=== PATIENT | female | born 1940 | race Caucasian/White ===

== ENCOUNTER 2017-09-24 06:24 | Observation (INO) | payer MEDICARE, BC ==
[2017-09-24] VITALS (10 sets, daily range): BP systolic 105–232; BP diastolic 52–105; PULSE 43–71; RESP 16–20; TEMP 96.9–97.4; O2SAT 94–97
[~2017-09-24] VITALS: Ht 144.8 cm; Wt 69.7 kg
--- NOTE | 2017-09-24 07:14 | PD ---
HPI Chief Complaint: Musculoskeletal Complaint Time Seen by Provider: 07:11 Travel History International Travel<30 days: No Contact w/Intl Traveler<30days: No Traveled to known affect area: No History of Present Illness HPI 77-year-old female patient presents to the ER today, states that she has been having 3 weeks history of generalized weakness, body aches, dyspnea on exertion. She denies any fevers, vomiting, abdominal pains, diarrhea, chest pains, or any other symptoms. Modifying Factors: None Associated Signs & Symptoms: General weakness, body aches, dyspnea on exertion Risk Factors: None PFSH Past Medical History ?: Not Social History Tobacco Use: No Allergies-Medications (Allergen,Severity, Reaction): Coded Allergies: bacitracin (Verified Allergy, Severe, redness, 09/24/17) Reported Meds & Prescriptions Reported Meds & Active Scripts Active Reported Xalatan Opth Drops (Latanoprost) 0.005% Drops 1 Drop EACH EYE HS Cimetidine 800 Mg Tab 800 Mg PO HS Nexium (Esomeprazole DR) 40 Mg Capdr 40 Mg PO EVERY OTHER DAY Nexium (Esomeprazole DR) 40 Mg Capdr 40 Mg PO DAILY Rosadan Topical 0.75% (Metronidazole Topical 0.75%) 0.75% Gel 1 Applic TOPICAL BID Atenolol 100 Mg Tab 100 Mg PO DAILY Losartan (Losartan Potassium) 100 Mg Tab 100 Mg PO DAILY Review of Systems Except as stated in HPI: all other systems reviewed are Neg Physical Exam Narrative GENERAL: Well-developed elderly white female patient currently in mild distress. Awake, alert, oriented 3. SKIN: Focused skin assessment warm/dry. HEAD: Atraumatic. Normocephalic. EYES: Pupils equal and round. No scleral icterus. No injection or drainage. ENT: No nasal bleeding or discharge. Mucous membranes pink and moist. NECK: Trachea midline. No JVD. Supple. CARDIOVASCULAR: Regular rate and rhythm. No murmur appreciated. Pulses are present and equal bilaterally. RESPIRATORY: No accessory muscle use. Clear to auscultation. Breath sounds equal bilaterally. GASTROINTESTINAL: Abdomen soft, non-tender, nondistended. Hepatic and splenic margins not palpable. MUSCULOSKELETAL: No obvious deformities. No clubbing. No cyanosis. No edema. NEUROLOGICAL: Awake and alert. No obvious cranial nerve deficits. Motor grossly within normal limits. Normal speech. PSYCHIATRIC: Appropriate mood and affect; insight and judgment normal. Data Data Last Documented VS Vital Signs Date Time Temp Pulse Resp B/P (MAP) Pulse Ox O2 Delivery O2 Flow Rate FiO2 09/24/17 07:10 208/89 (128) 09/24/17 07:10 43 18 09/24/17 07:00 Orders Orders Complete Blood Count With Diff (09/24/17 06:55) Comprehensive Metabolic Panel (09/24/17 06:55) Urinalysis - C+S If Indicated (09/24/17 06:55) Electrocardiogram (09/24/17 07:04) Influenzae A/B Antigen (09/24/17 07:04) Ckmb (Isoenzyme) Profile (09/24/17 06:55) Troponin I (09/24/17 06:55) Chest, Single Ap (09/24/17 07:11) D-Dimer (09/24/17 07:11) Admit Order (Ed Use Only) (09/24/17 09:04) Labs Laboratory Tests Test 09/24/17 07:30 09/24/17 07:32 Urine Color YELLOW Urine Turbidity CLEAR Urine pH 6.0 Urine Specific Glennie 1.007 Urine Protein TRACE mg/dL Urine Glucose (UA) NEG mg/dL Urine Ketones NEG mg/dL Urine Occult Blood NEG Urine Nitrite NEG Urine Bilirubin NEG Urine Leukocyte Esterase NEG Urine RBC 0-3 /hpf Urine WBC 0-2 /hpf Urine Squamous Epithelial Cells 0-5 /hpf Urine Bacteria NONE /hpf Microscopic Urinalysis Comment CULT NOT INDICATED White Blood Count 11.4 TH/MM3 Red Blood Count 4.98 MIL/MM3 Hemoglobin 13.6 GM/DL Hematocrit 42.3 % Mean Corpuscular Volume 84.8 FL Mean Corpuscular Hemoglobin 27.4 PG Mean Corpuscular Hemoglobin Concent 32.3 % Red Cell Distribution Width 13.3 % Platelet Count 324 TH/MM3 Mean Platelet Volume 8.1 FL Neutrophils (%) (Auto) 68.0 % Lymphocytes (%) (Auto) 23.8 % Monocytes (%) (Auto) 6.7 % Eosinophils (%) (Auto) 0.7 % Basophils (%) (Auto) 0.8 % Neutrophils # (Auto) 7.7 TH/MM3 Lymphocytes # (Auto) 2.7 TH/MM3 Monocytes # (Auto) 0.8 TH/MM3 Eosinophils # (Auto) 0.1 TH/MM3 Basophils # (Auto) 0.1 TH/MM3 CBC Comment DIFF FINAL Differential Comment D-Dimer Quantitative (PE/DVT) 0.62 MG/L FEU Blood Urea Nitrogen 11 MG/DL Creatinine 0.64 MG/DL Random Glucose 114 MG/DL Total Protein 7.7 GM/DL Albumin 3.3 GM/DL Calcium Level 8.8 MG/DL Alkaline Phosphatase 106 U/L Aspartate Amino Transf (AST/SGOT) 18 U/L Alanine Aminotransferase (ALT/SGPT) 19 U/L Total Bilirubin 0.3 MG/DL Sodium Level 136 MEQ/L Potassium Level 3.8 MEQ/L Chloride Level 99 MEQ/L Carbon Dioxide Level 29.9 MEQ/L Anion Gap 7 MEQ/L Estimat Glomerular Filtration Rate 90 ML/MIN Total Creatine Kinase 25 U/L Troponin I LESS THAN 0.02 NG/ML MDM Medical Decision Making Medical Screen Exam Complete: Yes Emergency Medical Condition: Yes Medical Record Reviewed: Yes Interpretation(s) EKG shows a sinus bradycardia with a right bundle branch block pattern at a rate of 40 bpm. There is a fairly short MT interval. No signs of acute ST-T elevations or depressions. However, her T waves does appear to be more peaked. Laboratory Tests Test 09/24/17 07:30 09/24/17 07:32 White Blood Count 11.4 TH/MM3 (4.0-11.0) D-Dimer Quantitative (PE/DVT) 0.62 MG/L FEU (0.00-0.50) Random Glucose 114 MG/DL (74-106) Albumin 3.3 GM/DL (3.4-5.0) Total Creatine Kinase 25 U/L (26-192) Troponin I LESS THAN 0.02 NG/ML Last 24 hours Impressions Chest X-Ray 09/24/17 0711 Signed Impressions: Service Date/Time: Sunday, September 24, 2017 07:27 - CONCLUSION: No acute disease. Grover Penn MD Differential Diagnosis General weakness, body aches, dyspnea on exertion: Electrolyte abnormalities versus dehydration versus viral syndrome versus influenza versus rhabdomyolysis/ myopathy versus CHF versus pneumonia versus ACS Narrative Course Chest x-ray did not show any signs of acute pulmonary processes. Her lab work was otherwise unremarkable for significant metabolic issues. She does not have influenza. However, I do notice that her heart rate is running in the 40s and I suspect that she has a symptomatic bradycardia. She is on atenolol which may be worsening symptoms. Patient states she had just taken it this morning as well. At this point, my plan would be to admit her for observation for symptom at a bradycardia. We will hold the atenolol. Case was discussed with Dr. Murray for admission. Diagnosis Primary Impression: General weakness Additional Impression: Symptomatic bradycardia Admitting Information Admitting Physician Requests: Admit Keely Murillo MD Sep 24, 2017 07:14
[2017-09-24] MEDS ORDERED: LOSA100T PO (07:19)
[2017-09-24] MEDS ORDERED: METR0.7533 TOPICAL (07:19)
[2017-09-24] MEDS ORDERED: ATEN100T PO (07:19)
[2017-09-24] MEDS ORDERED: CIME800T PO (07:19)
[2017-09-24] MEDS ORDERED: LATA.005%O EACH EYE (07:19)
[2017-09-24] MEDS ORDERED: NEXI40CA PO ×2 (07:19)
[2017-09-24 07:41] LABS: AUTOMATED NEUTROPHIL # 7.7 TH/MM3 (1.8-7.7); BASOPHIL # 0.1 TH/MM3 (0-0.2); BASOPHIL % 0.8 % (0.0-2.0); EOSINOPHIL # 0.1 TH/MM3 (0-0.4); EOSINOPHIL % 0.7 % (0.0-4.0); HEMATOCRIT 42.3 % (35.0-46.0); HEMOGLOBIN 13.6 GM/DL (11.6-15.3); LYMPH % 23.8 % (9.0-44.0); LYMPHOCYTE # 2.7 TH/MM3 (1.0-4.8); MEAN CELL VOLUME 84.8 FL (80.0-100.0); MEAN CORPUSCULAR HEMOGLOBIN 27.4 PG (27.0-34.0); MEAN CORPUSCULAR HGB CONC 32.3 % (32.0-36.0); MEAN PLATELET VOLUME 8.1 FL (7.0-11.0); MONO % 6.7 % (0.0-8.0); MONOCYTE # 0.8 TH/MM3 (0-0.9); PLATELET COUNT 324 TH/MM3 (150-450); RED BLOOD COUNT 4.98 MIL/MM3 (4.00-5.30); RED CELL DISTRIBUTION WIDTH 13.3 % (11.6-17.2); WHITE BLOOD COUNT 11.4 TH/MM3 (4.0-11.0)
[2017-09-24 07:44] LABS: BILIRUBIN, URINE NEG (NEG); BLOOD, URINE NEG (NEG); GLUCOSE,URINE NEG (NEG); KETONE, URINE NEG (NEG); NITRITE,URINE NEG (NEG); URINE LEUKOCYTE ESTERASE NEG (NEG)
[2017-09-24 07:47] LABS: RBC, URINE 0-3 /hpf (0-3); SQUAMOUS EPITHELIAL CELL URINE 0-5 /hpf (0-5); URINE COLOR YELLOW (YELLW/STRAW); WBC, URINE 0-2 /hpf (0-5)
--- NOTE | 2017-09-24 07:49 | RADRPT ---
EXAM DATE/TIME: 09/24/2017 07:27 [facility] COMPARISON: No previous studies available for comparison. INDICATIONS : Upper back pain and pain all over as well. MEDICAL HISTORY : None. SURGICAL HISTORY : None. ENCOUNTER: Initial ACUITY: 4 - 6 days PAIN SCORE: 5/10 LOCATION: posterior back FINDINGS: A single view of the chest demonstrates the lungs to be symmetrically aerated without evidence of mas s, infiltrate or effusion. The cardiomediastinal contours are unremarkable. Osseous structures are intact. CONCLUSION: No acute disease. Grover Penn MD on September 24, 2017 at 7:48 Board Certified Radiologist. This report was verified electronically.
[2017-09-24 07:50] LABS: CHLORIDE 99 MEQ/L (98-107); SODIUM (NA) 136 MEQ/L (136-145)
[2017-09-24 07:53] LABS: CALCIUM 8.8 MG/DL (8.5-10.1)
[2017-09-24 07:54] LABS: ALBUMIN 3.3 GM/DL (3.4-5.0); BICARBONATE 29.9 MEQ/L (21.0-32.0); BLOOD UREA NITROGEN 11 MG/DL (7-18); GLUCOSE,RANDOM 114 MG/DL (74-106)
[2017-09-24 07:57] LABS: ALT (GPT) 19 U/L (10-53); AST (GOT) 18 U/L (15-37); CREATININE 0.64 MG/DL (0.50-1.00); GLOMERULAR FILTRATION RATE 90 ML/MIN (>89)
[2017-09-24 07:59] LABS: TOTAL BILIRUBIN ADULT 0.3 MG/DL (0.2-1.0); TOTAL PROTEIN 7.7 GM/DL (6.4-8.2)
[2017-09-24 08:00] LABS: ALKALINE PHOSPHATASE 106 U/L (45-117)
[2017-09-24 08:02] LABS: TROPONIN I LESS THAN 0.02 NG/ML (0.02-0.05)
[2017-09-24] MEDS ORDERED: TEMAZEPAM 15 MG CAP PO PRN (09:15)
[2017-09-24] MEDS ORDERED: SODIUM CHLORIDE 0.9% FLUSH 10 ML FLUSH IV FLUSH PRN (09:15)
[2017-09-24] MEDS ORDERED: hydrALAZINE HCL 10 MG TAB PO PRN (09:15)
[2017-09-24] MEDS ORDERED: SENNOSIDES 8.6 MG TAB PO PRN (09:15)
[2017-09-24] MEDS ORDERED: LACTULOSE SYRUP 20 GM/30 ML CUP PO PRN (09:15)
[2017-09-24] MEDS ORDERED: MAGNESIUM HYDROXIDE SUSP 30 ML CUP PO PRN (09:15)
[2017-09-24] MEDS ORDERED: NALOXONE HCL 0.4 MG/ML AMP IV PUSH PRN (09:15)
[2017-09-24] MEDS ORDERED: ONDANSETRON HCL 4 MG/2 ML VIAL IVP PRN (09:15)
[2017-09-24] MEDS ORDERED: ACETAMINOPHEN 325 MG TAB PO PRN (09:15)
[2017-09-24] MEDS ORDERED: BISACODYL 10 MG SUPP RECTAL PRN (09:15)
[2017-09-24] MEDS ORDERED: NITROGLYCERIN 2% OINT 1 GM PACKET TOPICAL ONE (09:30)
[2017-09-24] MEDS: ENOXAPARIN SODIUM 40 MG/0.4 ML SYRINGE SQ SCH (09:31)
[2017-09-24] MEDS ORDERED: ENALAPRILAT 2.5 MG/2 ML VIAL IV PUSH PRN (13:30)
--- NOTE | 2017-09-24 14:10 | HHI.HP ---
HPI [facility] Primary Care Physician Non-Staff Admission Diagnosis Symptomatic bradycardia Diagnoses: Chief Complaint: Generalized weakness Dyspnea on exertion Fatigue Travel History International Travel<30 Days: No Contact w/Intl Traveler <30 Da: No Traveled to Known Affected Are: No History of Present Illness Written by Valerie Sanchez, acting as scribe for Dr. Murray on 09/24/17 at 13:55. Mrs. Verma is a 77-year-old female patient with a known medical history of HTN, asthma and GERD who presented to the ED with generalized weakness, dyspnea on exertion and fatigue x 3 weeks. She states that over the past few weeks she has been experiencing inability to perform daily IADLs without becoming short of breath and requiring a break. She also states she has been unable to keep up while walking alongside her . Patient states she has been feeling generally weak with complaint of transient tingling in her left arm. She also took her BP this morning which showed systolic in the 200's. She states he heart rate usually runs in the 50's. Denies any recent fever, chills, headache, shortness of breath, ab pain, n/v/d or dysuria. PCP is located in [place] where she resides half of the year. Does not follow with a [employer] [facility] developer. 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 Reported Medications Active Reported Xalatan Opth Drops (Latanoprost) 0.005% Drops 1 Drop EACH EYE HS Cimetidine 800 Mg Tab 800 Mg PO HS Nexium (Esomeprazole DR) 40 Mg Capdr 40 Mg PO EVERY OTHER DAY Rosadan Topical 0.75% (Metronidazole Topical 0.75%) 0.75% Gel 1 Applic TOPICAL BID Atenolol 100 Mg Tab 100 Mg PO DAILY Losartan (Losartan Potassium) 100 Mg Tab 100 Mg PO DAILY Allergies: Coded Allergies: bacitracin (Verified Allergy, Severe, redness, 09/24/17) Active Ordered Medications Current Medications Medications (Trade) Dose Ordered Sig/Layla Route Start Time Stop Time Status Last Admin (NS Flush) 2 ml UNSCH PRN IV FLUSH 09/24/17 09:15 (NS Flush) 2 ml BID IV FLUSH 09/24/17 21:00 (Tylenol) 650 mg Q4H PRN PO 09/24/17 09:15 (Zofran Inj) 4 mg Q6H PRN IVP 09/24/17 09:15 (Restoril) 15 mg HS PRN PO 09/24/17 09:15 (Lovenox Inj) 40 mg Q24H SQ 09/24/17 10:00 09/24/17 09:31 (Narcan Inj) 0.4 mg UNSCH PRN IV PUSH 09/24/17 09:15 (Marcy-Colace) 1 tab BID PO 09/24/17 21:00 (Milk Of Magnesia Liq) 30 ml Q12H PRN PO 09/24/17 09:15 (Senokot) 17.2 mg Q12H PRN PO 09/24/17 09:15 (Dulcolax Supp) 10 mg DAILY PRN RECTAL 09/24/17 09:15 (Lactulose Liq) 30 ml DAILY PRN PO 09/24/17 09:15 (Apresoline) 10 mg Q6HR PRN PO 09/24/17 09:15 (Xalatan 0.005% Opth Soln) 1 drop HS EACH EYE 09/24/17 21:00 (Cozaar) 100 mg DAILY PO 09/25/17 09:00 (Pepcid) 20 mg BID PO 09/24/17 21:00 (Protonix) 40 mg EVERY OTHER DAY PO 09/26/17 09:00 Patient Own Medication PT OWN MED: (Metronidazole Topical 0.... BID TOPICAL 09/24/17 21:00 Future Hold (Vasotec Inj) 2.5 mg Q6H PRN IV PUSH 09/24/17 13:30 (Lipitor) 20 mg HS PO 09/24/17 21:00 UNV Family History Maternal medical history significant for pacemaker and cardiovascular issues, at the age of 94 years of age. Paternal medical history significant for HTN, stroke, at the age of 70. Social History Does admit to smoking cigarettes for a total of 20 years, states she quit 20 years ago. Does admit to occasional alcohol use. Denies any illicit drug use. Physical Exam Vital Signs Vital Signs Date Time Temp Pulse Resp B/P (MAP) Pulse Ox O2 Delivery O2 Flow Rate FiO2 09/24/17 12:00 97.2 71 20 105/52 (69) 94 09/24/17 10:23 95 21 09/24/17 10:10 97.1 65 16 164/72 (102) 95 09/24/17 09:52 09/24/17 09:26 67 16 165/81 (109) 95 Room Air 09/24/17 07:10 208/89 (128) 09/24/17 07:10 43 18 09/24/17 07:00 09/24/17 06:41 97.4 43 18 232/105 (147) 97 Physical Exam GENERAL: This is a well-nourished, well-developed patient, in no apparent distress. SKIN: No rashes, ecchymoses or lesions. Warm and dry. HEAD: Atraumatic. Normocephalic. EYES: Pupils equal round and reactive. Extraocular motions intact. No scleral icterus. No injection or drainage. ENT: Nose without bleeding, purulent drainage or septal hematoma. Throat without erythema, tonsillar hypertrophy or exudate. Uvula midline. Airway patent. NECK: Trachea midline. No JVD or lymphadenopathy. Supple. CARDIOVASCULAR: Regular rate and rhythm without murmurs, gallops, or rubs. RESPIRATORY: Clear to auscultation. Breath sounds equal bilaterally. No wheezes , rales, or rhonchi. GASTROINTESTINAL: Abdomen soft, non-tender, nondistended. No guarding. MUSCULOSKELETAL: Extremities without clubbing, cyanosis, or edema. No joint tenderness, effusion, or edema noted. NEUROLOGICAL: Awake and alert. Cranial nerves II through XII intact. Motor and sensory grossly within normal limits. Five out of 5 muscle strength in all muscle groups. Normal speech. Laboratory Laboratory Tests Test 09/24/17 07:30 09/24/17 07:32 Urine Color YELLOW Urine Turbidity CLEAR Urine pH 6.0 Urine Specific [place] 1.007 Urine Protein TRACE Urine Glucose (UA) NEG Urine Ketones NEG Urine Occult Blood NEG Urine Nitrite NEG Urine Bilirubin NEG Urine Leukocyte Esterase NEG Urine RBC 0-3 Urine WBC 0-2 Urine Squamous Epithelial Cells 0-5 Urine Bacteria NONE Microscopic Urinalysis Comment CULT NOT INDICATED White Blood Count 11.4 Red Blood Count 4.98 Hemoglobin 13.6 Hematocrit 42.3 Mean Corpuscular Volume 84.8 Mean Corpuscular Hemoglobin 27.4 Mean Corpuscular Hemoglobin Concent 32.3 Red Cell Distribution Width 13.3 Platelet Count 324 Mean Platelet Volume 8.1 Neutrophils (%) (Auto) 68.0 Lymphocytes (%) (Auto) 23.8 Monocytes (%) (Auto) 6.7 Eosinophils (%) (Auto) 0.7 Basophils (%) (Auto) 0.8 Neutrophils # (Auto) 7.7 Lymphocytes # (Auto) 2.7 Monocytes # (Auto) 0.8 Eosinophils # (Auto) 0.1 Basophils # (Auto) 0.1 CBC Comment DIFF FINAL Differential Comment D-Dimer Quantitative (PE/DVT) 0.62 Blood Urea Nitrogen 11 Creatinine 0.64 Random Glucose 114 Total Protein 7.7 Albumin 3.3 Calcium Level 8.8 Alkaline Phosphatase 106 Aspartate Amino Transf (AST/SGOT) 18 Alanine Aminotransferase (ALT/SGPT) 19 Total Bilirubin 0.3 Sodium Level 136 Potassium Level 3.8 Chloride Level 99 Carbon Dioxide Level 29.9 Anion Gap 7 Estimat Glomerular Filtration Rate 90 Total Creatine Kinase 25 Troponin I LESS THAN 0.02 Date/Time Source Procedure Growth Status 09/24/17 07:28 Nasal Washing Influenza Types A,B Antigen ([facility]) - Final NEGATIVE FOR FLU A AND B ANTIGEN.... Complete Result Diagram: 09/24/17 0732 09/24/17 0732 Imaging Last Impressions Chest X-Ray 09/24/17 0711 Signed Impressions: Service Date/Time: Sunday, September 24, 2017 07:27 - CONCLUSION: No acute disease. Grover Penn MD Septic Shock Reassessment Septic shock perfusion: reassessment completed Caprini VTE Risk Assessment Caprini VTE Risk Assessment: Mod/High Risk (score >= 2) Caprini Risk Assessment Model Point Value = 1 Point Value = 2 Point Value = 3 Point Value = 5 Age 41-60 Minor surgery BMI > 25 kg/m2 Swollen legs Varicose veins or History of unexplained or recurrent spontaneous Oral contraceptives or hormone replacement Sepsis (< 1 month) Serious lung disease, including pneumonia (< 1 month) Abnormal pulmonary function Acute myocardial infarction Congestive heart failure (< 1 month) History of inflammatory bowel disease Medical patient at bed rest Age 61-74 Arthroscopic surgery Major open surgery (> 45 min) Laparoscopic surgery (> 45 min) Malignancy Confined to bed (> 72 hours) Immobilizing plaster cast Central venous access Age >= 75 History of VTE Family history of VTE Factor V Leiden Prothrombin [id number] Lupus anticoagulant Anticardiolipin antibodies Elevated serum homocysteine Heparin-induced thrombocytopenia Other congenital or acquired thrombophilia Stroke (< 1 month) Elective arthroplasty Hip, pelvis, or leg fracture Acute spinal cord injury (< 1 month) Prophylaxis Regimen Total Risk Factor Score Risk Level Prophylaxis Regimen 0-1 Low Early ambulation 2 Moderate Order ONE of the following: *Sequential Compression Device (SCD) *Heparin 5000 units SQ BID 3-4 Higher Order ONE of the following medications: *Heparin 5000 units SQ TID *Enoxaparin/Lovenox 40 mg SQ daily (WT < 150 kg, CrCl > 30 mL/min) *Enoxaparin/Lovenox 30 mg SQ daily (WT < 150 kg, CrCl > 10-29 mL/min) *Enoxaparin/Lovenox 30 mg SQ BID (WT < 150 kg, CrCl > 30 mL/min) AND/OR *Sequential Compression Device (SCD) 5 or more Highest Order ONE of the following medications: *Heparin 5000 units SQ TID (Preferred with Epidurals) *Enoxaparin/Lovenox 40 mg SQ daily (WT < 150 kg, CrCl > 30 mL/min) *Enoxaparin/Lovenox 30 mg SQ daily (WT < 150 kg, CrCl > 10-29 mL/min) *Enoxaparin/Lovenox 30 mg SQ BID (WT < 150 kg, CrCl > 30 mL/min) AND *Sequential Compression Device (SCD) Assessment and Plan Assessment and Plan Mrs. Verma is a 77-year-old female patient who presented to the ED with: Symptomatic bradycardia With generalized weakness, fatigue, muscle cramping, exertional dyspnea and transient tingling in left arm Heart rate noted to be as low as 39 bpm in ED. Patient takes Atenolol at home which has been discontinued due to symptomatic bradycardia. Continue to monitor on cardiac telemetry. Assess for any arrhythmias. Will obtain 2-D ECHO. Follow. CXR reviewed showing no acute disease. Hypertension, chronic: Systolic BP in the 200's on presentation. Now more controlled. Will continue home Losartan. Monitor BP trends. Vasotec IV and Hydralazine PO available PRN per parameters. Hyperlipidemia: Continue home statin. Elevated d-dimer and bilateral lower extremity cramping: Will order bilateral US rule out DVT. Follow. GERD: Protonix. DVT Prophylaxis: SCDs. Lovenox. Ambulation. This note was transcribed by NICHO Sanders. I, Dr. Noris Murray personally performed the history, physical exam, and medical decision making; and confirmed the accuracy of the information in the transcribed note. Authenticated by Dr. Noris Murray on 09/24/17 at 13:55. Valerie Sanchez Sep 24, 2017 14:10 Noris Murray MD Sep 24, 2017 18:53
--- NOTE | 2017-09-24 17:27 | EKG ---
Date Performed: 09/24/2017 Time Performed: 07:15:08 PTAGE: 77 years EKG: IDIOVENTRICULAR ESCAPE RHYTHM AT 40 BPM COMPLETE HEART BLOCK RIGHT BUNDLE BRANCH BLOCK LEFT ANTERIOR FASCICULAR BLOCK ABNORMAL ECG NO PREVIOUS TRACING DOCTOR: Ana María Bentley Interpretating Date/Time 09/24/2017 17:26:20
[2017-09-24] MEDS: DOCUSATE SODIUM 50 MG/SENNA 8.6 MG TAB PO SCH ×2 (20:50→20:59)
[2017-09-24] MEDS: FAMOTIDINE 20 MG TAB PO SCH ×2 (20:50→20:59)
[2017-09-24] MEDS: SODIUM CHLORIDE 0.9% FLUSH 10 ML FLUSH IV FLUSH SCH (20:51)
[2017-09-24] MEDS ORDERED: METRONIDAZOLE 0.75% TOPICAL SCH (21:00)
[2017-09-24] MEDS ORDERED: ATORVASTATIN 20 MG TAB PO SCH (21:00)
[2017-09-24] MEDS ORDERED: LATANOPROST 0.005% OPHT SOLN 2.5 ML BTL EACH EYE SCH (21:00)
[2017-09-25] VITALS: BP 169/79; PULSE 69; RESP 20; TEMP 97.5; O2SAT 93
[2017-09-25 04:00] VITALS: BP 150/70; PULSE 61; RESP 20; TEMP 97.1; O2SAT 93
[2017-09-25 06:09] LABS: AUTOMATED NEUTROPHIL # 4.8 TH/MM3 (1.8-7.7); BASOPHIL # 0.1 TH/MM3 (0-0.2); BASOPHIL % 0.7 % (0.0-2.0); EOSINOPHIL # 0.2 TH/MM3 (0-0.4); EOSINOPHIL % 1.9 % (0.0-4.0); HEMATOCRIT 37.5 % (35.0-46.0); HEMOGLOBIN 12.3 GM/DL (11.6-15.3); LYMPHOCYTE # 3.2 TH/MM3 (1.0-4.8); MEAN CORPUSCULAR HEMOGLOBIN 28.3 PG (27.0-34.0); MEAN CORPUSCULAR HGB CONC 32.8 % (32.0-36.0); MEAN PLATELET VOLUME 8.4 FL (7.0-11.0); MONO % 7.2 % (0.0-8.0); MONOCYTE # 0.6 TH/MM3 (0-0.9); NEUT % 54.2 % (16.0-70.0); PLATELET COUNT 247 TH/MM3 (150-450); RED BLOOD COUNT 4.37 MIL/MM3 (4.00-5.30); RED CELL DISTRIBUTION WIDTH 13.1 % (11.6-17.2); WHITE BLOOD COUNT 8.9 TH/MM3 (4.0-11.0)
[2017-09-25 06:28] LABS: BICARBONATE 30.4 MEQ/L (21.0-32.0); CALCIUM 8.5 MG/DL (8.5-10.1)
[2017-09-25 06:32] LABS: CREATININE 0.5 MG/DL (0.50-1.00)
[2017-09-25 08:00] VITALS: BP 135/68; PULSE 67; RESP 18; TEMP 97; O2SAT 97
--- NOTE | 2017-09-25 08:22 | RADRPT ---
EXAM DATE/TIME: 09/25/2017 07:52 [facility] COMPARISON: No previous studies available for comparison. INDICATIONS : Bilateral leg pain. MEDICAL HISTORY : Hypercholesterolemia. Hypertension. Gastroesophageal reflux disease. Asthma. Hiatal hernia. Arthritis . Squamous cell cancer. SURGICAL HISTORY : Tonsillectomy.Total knee replacement, left. Total knee replacement, right.Bilateral cataract surgery. Dilation and curettage. ENCOUNTER: Initial ACUITY: 1 day PAIN SCORE: 4/10 LOCATION: Bilateral legs. TECHNIQUE: Venous ultrasound of the left and right leg was performed from the inguinal ligament to the proximal calf. Real-time, color Doppler and spectral tracing, compression and augmentation techniques were us ed. FINDINGS: RIGHT LEG: There is normal compressibility of the deep venous system from the inguinal region to the proximal ca lf. No echogenic clot is seen in the lumen of the common femoral, femoral, popliteal, and posterior tibial veins. There is a normal response of the venous system to proximal and distal augmentation an d respiration. LEFT LEG: There is normal compressibility of the deep venous system from the inguinal region to the proximal ca lf. No echogenic clot is seen in the lumen of the common femoral, femoral, popliteal, and posterior tibial veins. There is a normal response of the venous system to proximal and distal augmentation an d respiration. CONCLUSION: No evidence of DVT. Darvin Ramsay MD on September 25, 2017 at 8:20 Board Certified Radiologist. This report was verified electronically.
[2017-09-25] MEDS: SODIUM CHLORIDE 0.9% FLUSH 10 ML FLUSH IV FLUSH SCH (08:39)
[2017-09-25] MEDS ORDERED: LOSARTAN 50 MG TAB PO SCH (09:00)
[2017-09-25] MEDS: DOCUSATE SODIUM 50 MG/SENNA 8.6 MG TAB PO SCH (09:11)
[2017-09-25] MEDS: ENOXAPARIN SODIUM 40 MG/0.4 ML SYRINGE SQ SCH (09:11)
[2017-09-25] MEDS: FAMOTIDINE 20 MG TAB PO SCH (09:11)
[2017-09-25] MEDS ORDERED: amLODIPine BESYLATE 5 MG TAB PO SCH (09:45)
--- NOTE | 2017-09-25 09:47 | HHI.PR ---
Subjective Remarks Ambulating in the hallways no cp, sob lightheadedness, feels much better. HR is better controlled. Objective Vitals Vital Signs Date Time Temp Pulse Resp B/P (MAP) Pulse Ox O2 Delivery O2 Flow Rate FiO2 09/25/17 04:00 97.1 61 20 150/70 (96) 93 09/25/17 00:00 97.5 69 20 169/79 (109) 93 09/24/17 20:00 96.9 67 20 171/80 (110) 94 09/24/17 19:28 96 21 09/24/17 16:00 97.2 60 20 169/74 (105) 97 09/24/17 12:00 97.2 71 20 105/52 (69) 94 09/24/17 10:23 95 21 09/24/17 10:10 97.1 65 16 164/72 (102) 95 09/24/17 09:52 I/O 09/24/17 09/24/17 09/24/17 09/25/17 09/25/17 09/25/17 07:00 15:00 23:00 07:00 15:00 23:00 Intake Total 920 ml 2 ml 720 ml Balance 920 ml 2 ml 720 ml Intake Oral 920 ml 720 ml IV Total 2 ml # Voids 2 4 Result Diagram: 09/25/17 0525 09/25/17 0525 Imaging Last Impressions Lower Extremity Ultrasound 09/25/17 0000 Signed Impressions: Service Date/Time: Monday, September 25, 2017 07:52 - CONCLUSION: No evidence of DVT. Darvin Ramsay MD Chest X-Ray 09/24/17 0711 Signed Impressions: Service Date/Time: Sunday, September 24, 2017 07:27 - CONCLUSION: No acute disease. Grover Penn MD Objective Remarks GENERAL: This is a well-nourished, well-developed patient, in no apparent distress. CARDIOVASCULAR: Regular rate and rhythm without murmurs, gallops, or rubs. RESPIRATORY: Clear to auscultation. Breath sounds equal bilaterally. No wheezes , rales, or rhonchi. GASTROINTESTINAL: Abdomen soft, non-tender, nondistended. No guarding. MUSCULOSKELETAL: Extremities without clubbing, cyanosis, or edema. No joint tenderness, effusion, or edema noted. NEUROLOGICAL: Awake and alert. Cranial nerves II through XII intact. Motor and sensory grossly within normal limits. Five out of 5 muscle strength in all muscle groups. Normal speech. A/P Assessment and Plan Mrs. Verma is a 77-year-old female patient who presented to the ED with: Symptomatic bradycardia With generalized weakness, fatigue, muscle cramping, exertional dyspnea and transient tingling in left arm Heart rate noted to be as low as 39 bpm in ED. hR is in upper 60s, DC beta kye Patient takes Atenolol at home which has been discontinued due to symptomatic bradycardia. Continue to monitor on cardiac telemetry. Assess for any arrhythmias. 2-D ECHO with EF 65-70% Follow. Can't have beta kye because patient with bradycardia CXR reviewed showing no acute disease. Hypertension, chronic: Systolic BP in the 200's on presentation. Now more controlled. Will continue home Losartan. Monitor BP trends. Vasotec IV and Hydralazine PO available PRN per parameters. Will add amlodipine, continue at DC. DC atenolol as patient with bradycardia. To follow up as OP with PCP and consultants Hyperlipidemia: Continue home statin. Elevated d-dimer and bilateral lower extremity cramping: BL US no DVT. GERD: Protonix. DVT Prophylaxis: SCDs. Lovenox. Ambulation. Discharge Planning DC home in stable condition to f/u as OP with PCP and consultants Activity ad aminta as tolerated Meds per med reconciliations. Hold BB as patient with bradycardia, to /fu with PCP and cardiology as OP Diet; healthy heart diet Noris Murray MD Sep 25, 2017 09:47
--- NOTE | 2017-09-25 09:47 | ECHRPT ---
Indication: SHORTNESS OF BREATH CONCLUSIONS Normal left ventricular size. Mild concentric left ventricular hypertrophy. The left ventricular systolic function is hyperdynamic with an estimated ejection fraction in the ra nge of 65- 70%. Normal wall motion. Trace mitral valve regurgitation. There is trace tricuspid valve regurgitation. The estimated pulmonary arterial pressure is 40 mmHg. Slight aortic valve sclerosis is present. BP: 150 / 70 HR: 61 Rhythm: Sinus MEASUREMENTS (Male / Female) Normal Values Technical Quality:Fair 2D ECHO LV Diastolic Diameter PLAX 3.9 cm 4.2 - 5.9 / 3.9 - 5.3 cm LV Systolic Diameter PLAX 2.6 cm IVS Diastolic Thickness 1.2 cm 0.6 - 1.0 / 0.6 - 0.9 cm LVPW Diastolic Thickness 1.2 cm 0.6 - 1.0 / 0.6 - 0.9 cm LV Relative Wall Thickness 0.6 RV Internal Dim ED PLAX 2.5 cm LVOT Diameter 1.8 cm Aortic Root Diameter 2.7 cm LA Systolic Diameter LX 2.2 cm 3.0 - 4.0 / 2.7 - 3.8 cm M-MODE AV Cusp Separation MM 2.0 cm DOPPLER AV Peak Velocity 193.0 cm/s AV Peak Gradient 14.9 mmHg AV Mean Gradient 8.0 mmHg AV Velocity Time Integral 37.9 cm LVOT Peak Velocity 132.0 cm/s LVOT Peak Gradient 7.0 mmHg LVOT Velocity Time Integral 22.9 cm LVOT Cardiac Index 2084.7 cm/minm AV Area Cont Eq vti 1.5 cm AV Area Cont Eq pk 1.7 cm Mitral E Point Velocity 82.9 cm/s Mitral A Point Velocity 100.0 cm/s Mitral E to A Ratio 0.8 LV E' Lateral Velocity 11.2 cm/s Mitral E to LV E' Lateral Ratio 7.4 LV E' Septal Velocity 4.6 cm/s Mitral E to LV E' Septal Ratio 18.1 TR Peak Velocity 277.0 cm/s TR Peak Gradient 30.7 mmHg Right Atrial Pressure 10.0 mmHg Pulmonary Artery Systolic Pressu 40.7 mmHg Right Ventricular Systolic Press 40.7 mmHg PV Peak Velocity 70.7 cm/s PV Peak Gradient 2.0 mmHg FINDINGS LEFT VENTRICLE Normal left ventricular size. Mild concentric left ventricular hypertrophy. The left ventricular systolic function is hyperdynamic with an estimated ejection fraction in the ra nge of 65- 70%. Normal wall motion. RIGHT VENTRICLE Normal right ventricular size and systolic function. LEFT ATRIUM The left atrial size is normal. RIGHT ATRIUM The right atrial size is normal. ATRIAL SEPTUM Normal atrial septal thickness without atrial level shunting by limited color doppler interrogation. AORTA The aortic root and proximal ascending aorta are normal in size on limited imaging. MITRAL VALVE Trace mitral valve regurgitation. AORTIC VALVE Slight aortic valve sclerosis is present. TRICUSPID VALVE There is trace tricuspid valve regurgitation. The estimated pulmonary arterial pressure is 40 mmHg. PULMONARY VALVE No pulmonary valve regurgitation or stenosis. VESSELS The inferior vena cava is normal in size. PERICARDIUM No pericardial effusion. Chin Ritchie MD (Electronically Signed) Final Date:25 September 2017 09:45
[2017-09-25] MEDS ORDERED: AMLO2.5T PO (09:50)
--- NOTE | 2017-09-25 09:53 | HHI.DCPOC ---
Discharge Care Plan Goals to Promote Your Health * To prevent worsening of your condition and complications * To maintain your health at the optimal level Directions to Meet Your Goals Take your medications as prescribed Follow your dietary instruction Follow activity as directed Keep your appointments as scheduled Take your immunizations and boosters as scheduled If your symptoms worsen call your PCP, if no PCP go to Urgent Care Center or Emergency Room Smoking is Dangerous to Your Health. Avoid second hand smoke Call the 24-hour hour crisis hotline for domestic abuse at Noris Murray MD Sep 25, 2017 09:53
[2017-09-25] MEDS ORDERED: PILL SPLITTER OTHER PRN (11:00)
[2017-09-25] MEDS ORDERED: ATEN25TA PO (11:56)
[2017-09-25] MEDS ORDERED: ATOR20TA15 PO (11:56)
[2017-09-25 12:00] VITALS: BP 130/70; PULSE 70; RESP 18; TEMP 98; O2SAT 97
--- NOTE | 2017-09-25 15:08 | EKG ---
Date Performed: 09/24/2017 Time Performed: 15:34:50 PTAGE: 77 years EKG: SINUS BRADYCARDIA BORDERLINE ECG PREVIOUS TRACING : 09/24/2017 07.15 DOCTOR: Luis Davis Interpretating Date/Time 09/25/2017 15:06:16
[2017-09-26] MEDS ORDERED: PANTOPRAZOLE SOD 40 MG DELAYED RELEASE TAB PO SCH (09:00)
[2017-10-01] MEDS ORDERED: SIMV20TA PO (14:52)
== END 2017-09-25 14:00 | disposition home or self-care (01) ==
LOC: PHED 06:24 → PHEDA 09:05 → PH3B 09:56
PROVIDERS: ADMIT Hospitalist; ATTEND Hospitalist
DX: R00.1 Bradycardia, unspecified (principal); R53.1 Weakness; I10 Essential (primary) hypertension; R94.31 Abnormal electrocardiogram [ECG] [EKG]; E78.5 Hyperlipidemia, unspecified; J45.909 Unspecified asthma, uncomplicated; K21.9 Gastro-esophageal reflux disease without esophagitis; R79.1 Abnormal coagulation profile; Z96.653 Presence of artificial knee joint, bilateral
CPT/HCPCS: 71010; 80048; 80053; 81001; 82550; 84443; 84484; 85025; 85379; 87804; 93005; 93306; 93970; 96372; 96374; 97163; 99285; G0378; G8987; G8988; J1650